=== PATIENT | female | born 1995 | race Caucasian/White ===

== ENCOUNTER 2021-02-06 12:47 | Emergency (ER) | payer OTHER ==
[~2021-02-06] VITALS: Ht 177.8 cm; Wt 108.0 kg
[2021-02-06] MEDS ORDERED: OXYcodone/APAP 5/325MG TABLET PO ONE (13:30)
[2021-02-06] MEDS ORDERED: OXYcodone/APAP 5/325MG TABLET ONE (13:32)
[2021-02-06] MEDS ORDERED: FENTANYL PF 100 MCG/2ML ONE (13:36)
[2021-02-06] MEDS ORDERED: FENTANYL PF 100 MCG/2ML IV ONE (14:00)
[2021-02-06 14:57] VITALS: BP 111/80
== END 2021-02-06 14:59 | disposition home or self-care (01) ==
LOC: ED 14:53
DX: S93.492A Sprain of other ligament of left ankle, initial encounter (principal); X58.XXXA Exposure to other specified factors, initial encounter; Y93.89 Activity, other specified; Y92.89 Other specified places as the place of occurrence of the external cause; Y99.8 Other external cause status
CPT/HCPCS: 73610; 96374; 99283; J3010